=== PATIENT | male | born 1965 | race Caucasian/White ===

== ENCOUNTER 2018-09-13 12:06 | Inpatient (IN) | payer MEDICARE, MEDICAID ==
[~2018-09-13] VITALS: Ht 190.5 cm; Wt 149.7 kg
[2018-09-13] MEDS ORDERED: NS IV 1000 ML 1,000 ML IV SCH (12:09)
[2018-09-13] MEDS ORDERED: DOCUSATE SODIUM 100 MG (COLACE) CAP PO PRN (12:15)
[2018-09-13] MEDS ORDERED: ACETAMINOPHEN 500 MG TAB (TYLENOL) PO PRN (12:15)
[2018-09-13] MEDS ORDERED: fentaNYL INJECTION 100 MCG/2 ML AMP IVP PRN (12:15)
[2018-09-13] MEDS ORDERED: MELATONIN 3 MG TABLET PO PRN (12:15)
[2018-09-13] MEDS ORDERED: ONDANSETRON 4 MG/2 ML (SDV) Z0FRAN IVP PRN (12:15)
[2018-09-13] MEDS ORDERED: ALPRAZolam 0.25 MG (XANAX) TAB PO PRN (12:15)
[2018-09-13] MEDS ORDERED: VANCOMYCIN INJECTION 0.1 MG in NS (IVPB) 250 ML IV SCH (12:15)
[2018-09-13] MEDS ORDERED: diphenhydrAMINE 25 MG TAB (BENADRYL) PO PRN (12:15)
[2018-09-13] MEDS ORDERED: CALCIUM CARBONATE 500 MG (TUMS) TAB.CHEW PO PRN (12:15)
[2018-09-13 13:40] VITALS: BP 149/82
[2018-09-13 14:57] LABS: BASOPHILS % (AUTO) 0 % (0-10); EOSINOPHILS # (AUTO) 0.1 10^3/uL (0.0-0.3); EOSINOPHILS % (AUTO) 2 % (0-10); HEMATOCRIT 35 % (40-54); HEMOGLOBIN 11.4 G/DL (13.3-17.7); LYMPHOCYTES # (AUTO) 1.8 X 10^3 (1.0-4.0); LYMPHOCYTES % (AUTO) 31 % (12-44); MEAN CORPUSCULAR HEMOGLOBIN 29 PG (25-34); MEAN CORPUSCULAR HGB CONC 33 G/DL (32-36); MEAN CORPUSCULAR VOLUME 88 FL (80-99); MEAN PLATELET VOLUME 10.7 FL (7.4-10.4); MONOCYTES # (AUTO) 0.6 X 10^3 (0.0-1.0); MONOCYTES % (AUTO) 10 % (0-12); NEUTROPHILS # (AUTO) 3.2 X 10^3 (1.8-7.8); NEUTROPHILS % (AUTO) 56 % (42-75); PLATELET COUNT 134 10^3/uL (130-400); RED CELL DISTRIBUTION WIDTH 15.4 % (10.0-14.5); WHITE BLOOD COUNT 5.8 10^3/uL (4.3-11.0)
[2018-09-13] MEDS ORDERED: PIPERACILLIN/TAZO 4.5 GM/NS 100 ML IV NR ×2 (15:00)
[2018-09-13] MEDS ORDERED: INSU200I4 SC (15:06)
[2018-09-13] MEDS ORDERED: AMLO5TAB9 PO (15:06)
[2018-09-13] MEDS ORDERED: AMIT10TA6 PO (15:06)
[2018-09-13] MEDS ORDERED: IPRA4AER INH (15:06)
[2018-09-13] MEDS ORDERED: ALLO100T PO (15:06)
[2018-09-13] MEDS ORDERED: PREG150C PO (15:06)
[2018-09-13] MEDS ORDERED: METO100T12 PO (15:06)
[2018-09-13] MEDS ORDERED: NALO4SPR NS (15:06)
[2018-09-13] MEDS ORDERED: TOPI50TA13 PO (15:06)
[2018-09-13] MEDS ORDERED: DULO20CA18 PO (15:06)
[2018-09-13] MEDS ORDERED: SULF-222 PO (15:06)
[2018-09-13] MEDS ORDERED: SODI15OR5 PO (15:06)
[2018-09-13] MEDS ORDERED: LUBI24CA6 PO (15:06)
[2018-09-13] MEDS ORDERED: RANI300T4 PO (15:06)
[2018-09-13] MEDS ORDERED: RIZA10TA37 PO (15:06)
[2018-09-13] MEDS ORDERED: DOXA8TAB73 PO (15:06)
[2018-09-13] MEDS ORDERED: OXYC15TA79 PO (15:06)
[2018-09-13] MEDS ORDERED: ATOR20TA66 PO (15:06)
[2018-09-13 15:14] LABS: ALBUMIN 3.6 GM/DL (3.2-4.5); BILIRUBIN,TOTAL 0.3 MG/DL (0.1-1.0); CALCIUM 9.3 MG/DL (8.5-10.1); CREATININE SERUM 3.01 MG/DL (0.60-1.30); POTASSIUM 6.3 MMOL/L (3.6-5.0)
[2018-09-13 15:23] LABS: ERYTHROCYTE SEDIMENTATION RATE 65 MM/HR (0-30)
[2018-09-13] MEDS ORDERED: INSU100I14 SQ (15:26)
[2018-09-13] MEDS ORDERED: MAGN500C15 PO (15:26)
[2018-09-13] MEDS ORDERED: CHOL5000 PO (15:26)
[2018-09-13] MEDS ORDERED: IPRA3AMP31 NEB (15:26)
[2018-09-13] MEDS ORDERED: BUDE10.2 INH (15:26)
--- NOTE | 2018-09-13 15:27 | NUR ---
WENT OVER THE EXT MED HX WITH THE PATIENT AND HE VERIFIED HOW HE TAKES HIS MEDICATIONS. HE STATES HE TAKES VITAMIN D AND MAGNESIUM OTC. HE STATES HE ALSO HAS DUONEB NEBULIZER SOLUTION.
[2018-09-13] MEDS ORDERED: NON-FORMULARY MEDICATION 1 EA EA (Albuterol/Ipratropium (Combivent Respimat Inhal Spray) 1 INH PRN (15:45)
[2018-09-13] MEDS ORDERED: NON-FORMULARY MEDICATION 1 EA EA (Oxycodone HCl 15 MG) PO PRN (15:45)
[2018-09-13] MEDS ORDERED: NON-FORMULARY MEDICATION 1 EA EA (Rizatriptan Benzoate (Rizatriptan) 10 MG) PO PRN (15:45)
[2018-09-13 15:58] VITALS: BP 144/78
[2018-09-13] MEDS: NS IV 1000 ML 1,000 ML IV SCH (16:44)
--- NOTE | 2018-09-13 17:29 | Progress Note-Hospitalist ---
Progress Note This is a patient Dr Carmichael admitted to my service after seeing him in clinic for a non-healing left foot wound. 2 weeks of abx have not helped. Patient sees PCP in [place]. Patient was admitted and underwent osteo w/u and will be placed on empiric abx in prep for surgery by Dr Carmichael. SHRUTHI GROSS DO Sep 13, 2018 17:29
[2018-09-13] MEDS: VANCOMYCIN 2000 MG/NS 500 ML IVPB IV SCH ×2 (17:40)
[2018-09-13] MEDS: inSUlin ASPART (NovoLOG) 1 UNIT/0.01 ML (CHARGE PER UNIT) SC SCH ×2 (17:45→21:30)
[2018-09-13] MEDS: ENOXAPARIN 40 MG/0.4 ML (LOVENOX) SYR SC SCH (17:49)
[2018-09-13] MEDS ORDERED: NON-FORMULARY MEDICATION 1 EA EA (Insulin Degludec (Tresiba Flextouch U-200) 50 UNITS) SC SCH (18:00)
[2018-09-13] MEDS ORDERED: SUMAtriptan 50 MG (IMITREX) TAB PO PRN (18:15)
[2018-09-13 19:12] VITALS: BP 159/76
[2018-09-13] MEDS ORDERED: NON-FORMULARY MEDICATION 1 EA EA (Pregabalin (Lyrica) 150 MG) PO SCH (21:00)
[2018-09-13] MEDS ORDERED: NON-FORMULARY MEDICATION 1 EA EA (Metoprolol Tartrate 100 MG) PO SCH (21:00)
[2018-09-13] MEDS ORDERED: NON-FORMULARY MEDICATION 1 EA EA (Topiramate 50 MG) PO SCH (21:00)
[2018-09-13] MEDS ORDERED: ALLOPURINOL 150 MG PO SCH (21:00)
[2018-09-13] MEDS ORDERED: NON-FORMULARY MEDICATION 1 EA EA (Doxazosin Mesylate 8 MG) PO SCH (21:00)
[2018-09-13] MEDS ORDERED: NON-FORMULARY MEDICATION 1 EA EA (Magnesium Oxide (Magnesium) 500 MG) PO SCH (21:00)
[2018-09-13] MEDS ORDERED: NON-FORMULARY MEDICATION 1 EA EA (Budesonide/Formoterol Fumarate (Symbicort 160-4.5 Mcg In INH SCH (21:00)
[2018-09-13] MEDS ORDERED: NON-FORMULARY MEDICATION 1 EA EA (Cholecalciferol (Vitamin D3) (Vitamin D3) 5,000 UNIT) PO SCH (21:00)
[2018-09-13] MEDS ORDERED: NON-FORMULARY MEDICATION 1 EA EA (Ranitidine HCl 300 MG) PO SCH (21:00)
[2018-09-13] MEDS: NICOTINE 21 MG (NICODERM) PATCH TD SCH (21:27)
[2018-09-13] MEDS: FAMOTIDINE 20 MG (PEPCID) TABLET PO SCH (21:28)
[2018-09-13] MEDS: ALLOPURINOL 300 MG (ZYLOPRIM) TAB PO SCH (21:28)
[2018-09-13] MEDS: PREGABALIN 75 MG (LYRICA) CAP PO SCH (21:29)
[2018-09-13] MEDS: MAGNESIUM OXIDE (MAG-OX)400 MG TAB PO SCH (21:29)
[2018-09-13] MEDS: toPIRamate 25 MG (TOPAMAX) TAB PO SCH (21:29)
[2018-09-13] MEDS: SENNA W/DOCUSATE (SENOKOT S) TABLET PO SCH (21:30)
[2018-09-13] MEDS: AMITRIPTYLINE 10 MG (ELAVIL) TAB PO SCH (21:30)
[2018-09-13] MEDS: VITAMIN D3 5,000 UNITS (CHOLECALCIFEROL ) CAPSULE PO SCH (21:30)
[2018-09-13] MEDS: meTOprolol TARTRATE 50 MG (LOPRESSOR) TAB PO SCH (21:30)
[2018-09-13] MEDS: PIPERACILLIN/TAZOBACTAM (BULK) 4.5 GM in NS (IVPB) 100 ML IV SCH (21:31)
[2018-09-13] MEDS: doxAzosin 4 MG (CARDURA) TAB PO SCH (21:34)
[2018-09-13] MEDS: POLYETHYLENE GLYCOL 17 GM (MIRALAX) PACK PO SCH (21:36)
[2018-09-13 23:30] VITALS: BP 164/86
[2018-09-14] VITALS (11 sets, daily range): BP systolic 109–151; BP diastolic 63–83
[2018-09-14] MEDS: NS IV 1000 ML 1,000 ML IV SCH ×2 (05:55→11:56)
[2018-09-14 05:57] LABS: BASOPHILS % (AUTO) 0 % (0-10); EOSINOPHILS # (AUTO) 0.2 10^3/uL (0.0-0.3); EOSINOPHILS % (AUTO) 3 % (0-10); HEMATOCRIT 23 % (40-54); HEMOGLOBIN 7.5 G/DL (13.3-17.7); LYMPHOCYTES # (AUTO) 2.6 X 10^3 (1.0-4.0); LYMPHOCYTES % (AUTO) 38 % (12-44); MEAN CORPUSCULAR HEMOGLOBIN 29 PG (25-34); MEAN CORPUSCULAR HGB CONC 32 G/DL (32-36); MEAN CORPUSCULAR VOLUME 92 FL (80-99); MEAN PLATELET VOLUME 10.3 FL (7.4-10.4); MONOCYTES # (AUTO) 0.7 X 10^3 (0.0-1.0); MONOCYTES % (AUTO) 11 % (0-12); NEUTROPHILS # (AUTO) 3.2 X 10^3 (1.8-7.8); NEUTROPHILS % (AUTO) 48 % (42-75); PLATELET COUNT 102 10^3/uL (130-400); WHITE BLOOD COUNT 6.7 10^3/uL (4.3-11.0)
[2018-09-14] MEDS: PIPERACILLIN/TAZOBACTAM (BULK) 4.5 GM in NS (IVPB) 100 ML IV SCH ×3 (06:05→21:55)
[2018-09-14] MEDS: inSUlin ASPART (NovoLOG) 1 UNIT/0.01 ML (CHARGE PER UNIT) SC SCH ×4 (06:06→21:53)
[2018-09-14] MEDS: ENOXAPARIN 40 MG/0.4 ML (LOVENOX) SYR SC SCH ×2 (06:06→19:06)
[2018-09-14 06:20] LABS: ALBUMIN 3.3 GM/DL (3.2-4.5); BILIRUBIN,TOTAL 0.3 MG/DL (0.1-1.0); CALCIUM 8.9 MG/DL (8.5-10.1); CREATININE SERUM 2.92 MG/DL (0.60-1.30); POTASSIUM 5.8 MMOL/L (3.6-5.0); TOTAL PROTEIN 6.2 GM/DL (6.4-8.2)
[2018-09-14] MEDS ORDERED: NICOTINE 21 MG (NICODERM) PATCH TD SCH (09:00)
[2018-09-14] MEDS ORDERED: NON-FORMULARY MEDICATION 1 EA EA (Amlodipine Besylate 5 MG) PO SCH (09:00)
[2018-09-14] MEDS: NICOTINE PATCH REMOVAL TP SCH (09:19)
[2018-09-14] MEDS: PREGABALIN 75 MG (LYRICA) CAP PO SCH ×2 (09:19→21:52)
[2018-09-14] MEDS: VITAMIN D3 5,000 UNITS (CHOLECALCIFEROL ) CAPSULE PO SCH ×2 (09:19→21:52)
[2018-09-14] MEDS: MAGNESIUM OXIDE (MAG-OX)400 MG TAB PO SCH ×2 (09:20→21:53)
[2018-09-14] MEDS: ALLOPURINOL 300 MG (ZYLOPRIM) TAB PO SCH ×2 (09:20→21:52)
[2018-09-14] MEDS: meTOprolol TARTRATE 50 MG (LOPRESSOR) TAB PO SCH ×2 (09:20→21:52)
[2018-09-14] MEDS: amLODIPine 5 MG (NORVASC) TAB PO SCH (09:21)
[2018-09-14] MEDS: SENNA W/DOCUSATE (SENOKOT S) TABLET PO SCH ×2 (09:21→21:53)
[2018-09-14] MEDS: NICOTINE 21 MG (NICODERM) PATCH TD SCH (09:21)
[2018-09-14] MEDS: POLYETHYLENE GLYCOL 17 GM (MIRALAX) PACK PO SCH ×2 (09:21→21:53)
[2018-09-14] MEDS: ATORVASTATIN 20 MG (LIPITOR) TABLET PO SCH (09:22)
[2018-09-14 10:24] LABS: HEMOGLOBIN 11.3 G/DL (13.3-17.7)
--- NOTE | 2018-09-14 11:27 | History & Physical-Hospitalist ---
History of Present Illness HPI/Chief Complaint CC: Left foot wound HPI: This is a 52-year-old white male clinic patient of Dr. Dolores rose who previously had an uncomplicated left foot surgery for a sesamoid bone removal but had some issues with a delayed healing placed on antibiotics for 2 weeks but had no improvement. He was sent over as a direct admission for presumed osteomyelitis of the left foot. He reports that the left foot swelling has never resolved since his surgery and has a lot of pain at times but he is diabetic neuropathy helps minimize that type of pain. He does have renal insufficiency usual creatinine is around 2.5 he reports that he was on Bactrim so we will monitor creatinine closely. I did maintain him on IV fluids for flushing of his system. I reviewed his home medications and restarted most and he is using his home BiPAP machine. MRI and labs will be obtained while patient maintained on vancomycin and Zosyn. Source: patient Exam Limitations: no limitations Date Seen 09/14/18 Time Seen by a Provider: 10:00 Attending Physician Malinda Bernal DO PCP No,Local Physician Referring Physician Date of Admission Sep 13, 2018 at 13:58 Home Medications & Allergies Home Medications Reviewed patient Home Medication Reconciliation performed by pharmacy medication reconciliations bindery technician and/or nursing. Patients Allergies have been reviewed. Allergies Allergies Uncoded Allergies IV contrast ( Adverse Reaction, Mild, 09/13/18) pt states it hurts his kidneys Past Ascpcjz-Kiciam-Kpqitl Hx Past Med/Social Hx: Reviewed Nursing Past Med/Soc Hx, Reviewed and Corrections made Patient Social History Marrital Status: cohabiting Employed/Student: unemployed Alcohol Use: Denies Use Recreational Drug Use: No Smoking Status: Current Everyday Smoker Physical Abuse Screen: No Sexual Abuse: No Recent Foreign Travel: No Contact w/other who traveled: No Recent Hopitalizations: Yes (6 WEEKS AGO FOR ORTHO SURGERY ON FOOT) Recent Infectious Disease Expo: No Immunizations Up To Date Date of Pneumonia Vaccine: Feb 13, 2018 Seasonal Allergies Seasonal Allergies: No Past Medical History Surgeries: Orthopedic Respiratory: Sleep Apnea Currently Using CPAP: Yes Cardiac: High Cholesterol, Hypertension Neurological: Neuropathy Sexually Transmitted Disease: No HIV/AIDS: No Genitourinary: Renal Failure, Dialysis Gastrointestinal: Gastroesophageal Reflux Musculoskeletal: Arthritis, Gout Endocrine: Diabetes, Insulin dep Are Your Blood Sugars Over 250: No HEENT: Cataract Loss of Vision: Denies Hearing Impairment: Denies Family History Patient reports no known family medical history. Review of Systems Constitutional: see HPI EENTM: no symptoms reported Respiratory: no symptoms reported Cardiovascular: no symptoms reported Gastrointestinal: no symptoms reported Genitourinary: no symptoms reported Musculoskeletal: joint pain Skin: no symptoms reported Psychiatric/Neurological: No Symptoms Reported All Other Systems Reviewed Negative Unless Noted: Yes Physical Exam Physical Exam Vital Signs Vital Signs - First Documented 09/13/18 09/13/18 13:40 22:00 Temp 98.1 Pulse 82 Resp 20 B/P (MAP) 149/82 Pulse Ox 93 O2 Delivery Room Air O2 Flow Rate 4.00 Capillary Refill : Height, Weight, BMI Height: 6'3.00" Weight: 330lbs. 0.0oz. 149.864371qo; 41.3 BMI Method: General Appearance: No Apparent Distress, WD/WN, Chronically ill, Obese Eyes: Right Eye Normal Inspection, Right Eye PERRL HEENT: PERRL/EOMI, Normal ENT Inspection, Pharynx Normal, Moist Mucous Membranes Neck: Full Range of Motion, Normal Inspection, Non Tender Respiratory: Chest Non Tender, Lungs Clear, Normal Breath Sounds, No Accessory Muscle Use, No Respiratory Distress Cardiovascular: Regular Rate, Rhythm, No Edema, No Gallop, No JVD, No Murmur, Normal Peripheral Pulses Gastrointestinal: Normal Bowel Sounds, No Organomegaly, No Pulsatile Mass, Non Tender, Soft Back: Normal Inspection, No CVA Tenderness, No Vertebral Tenderness Extremity: Normal Capillary Refill, Normal Inspection, Normal Range of Motion, Non Tender, No Calf Tenderness, No Pedal Edema, Other (left foot edema and redness) Neurologic/Psychiatric: Alert, Oriented x3, No Motor/Sensory Deficits, Normal Mood/Affect, seconds grader II-XII Norm as Tested Skin: Normal Color, Warm/Dry Lymphatic: No Adenopathy Results Results/Procedures Labs Laboratory Tests 09/13/18 14:41 09/14/18 05:25 09/14/18 10:15 Patient resulted labs reviewed. Assessment/Plan Admission Diagnosis Assessment: Left foot osteomyelitis Deep abscess DM HTN HLP GAYE Smoker Plan: IV abx Supportive care Monitor creatinine Admission Status: Inpatient Order (span 2 midnights) Reason for Inpatient Admission: IV abx and osteomyelitis Diagnosis/Problems Diagnosis/Problems (1) Osteomyelitis of left foot Status: Acute Qualifiers: Osteomyelitis type: unspecified type Qualified Codes: M86.9 - Osteomyelitis, unspecified (2) Abscess of left foot Status: Acute (3) GAYE treated with BiPAP Status: Chronic (4) Hypertension Status: Chronic Qualifiers: Hypertension type: essential hypertension Qualified Codes: I10 - Essential (primary) hypertension (5) Renal failure (ARF), acute on chronic Status: Chronic Qualifiers: Acute renal failure type: unspecified Chronic kidney disease stage: stage 4 (severe) Qualified Codes: N17.9 - Acute kidney failure, unspecified; N18.4 - Chronic kidney disease, stage 4 (severe) (6) Obesity Status: Chronic Qualifiers: Obesity type: due to excess calories Obesity classification: adult class 3 (BMI >= 40) Serious obesity comorbidity presence: with serious comorbidity (7) Smoker Status: Chronic (8) Wound of left foot Status: Acute Clinical Quality Measures DVT/VTE Risk/Contraindication: Risk Factor Score Per Nursin RFS Level Per Nursing on Admit: 4+=Very High MALINDA BERNAL DO Sep 14, 2018 11:27
[2018-09-14] MEDS: DULoxetine 20 MG (CYMBALTA) CAP PO SCH (11:56)
--- NOTE | 2018-09-14 12:13 | Diagnostic Imaging Report ---
PROCEDURE: MR imaging left lower extremity without contrast. TECHNIQUE: Multiplanar, multisequence non contrast enhanced MR imaging of the left lower extremity was accomplished. INDICATION: Left foot edema and redness. EXAMINATION: MRI of the left lower extremity without contrast dated 09/14/2018. FINDINGS: There is diffuse abnormal signal intensity involving the mid and distal aspects of the first metatarsal. This also involves the proximal aspect of the proximal first phalanx. Fluid in the first metatarsal joint is noted. There is also fluid tracking from the first metatarsal head along its plantar aspect down towards the skin, perhaps a laceration. This collection measures 2.6 cm in depth, approximately 2.8 cm in proximal to distal dimension and 2.2 cm in transverse dimension. An abscess is not excluded given lack of contrast. Fluid lies immediately adjacent to the flexor tendon of the great toe. The tendon is slightly prominent perhaps due to a tenosynovitis. Multiple areas of susceptibility artifact within the fluid collection and surrounding soft tissues noted perhaps postoperative or due to prior procedure, foreign bodies not excluded. Areas of susceptibility artifact also seen overlying the volar aspect of the first metatarsal head. There appears to be likely prior surgery through the first metatarsal itself with possible screws in place. This is better characterized with radiographs. Edema involves portions of the more distal proximal first phalanx and portions of the distal first phalanx as well. Diffuse subcutaneous edema seen probably in the dorsum of the entire visualized foot and also throughout the medial subcutaneous soft tissues of the foot. Mild diffuse muscular edema is also seen throughout the foot perhaps due to a diffuse myositis. The more proximal osseous structures demonstrate multifocal areas of scattered mild edema within the phalanges of all remaining toes. Some of this may represent incomplete fat saturation. True edema felt to be much less likely. Correlate for any overlying lacerations. IMPRESSION: 1. Fluid collection noted along the plantar aspect of the great toe at the level of the first metatarsophalangeal joint. This tracks to the skin and could represent an ulcer, correlate with physical examination. An underlying abscess not excluded without contrast. This extends to the joint space as well and a septic joint at the first metatarsal phalangeal joint is certainly possible. Additionally, abnormal signal intensity in the first metatarsal and the proximal first phalanx and to a lesser degree the distal first phalanx could be reactive in nature with osteomyelitis however suspected. Again post contrast imaging could provide further characterization if clinically indicated. 2. Diffuse soft tissue signal changes and muscular edema, likely a combination of myositis, a deep subcutaneous edema and/or cellulitis. 3. Other findings as above. Dictated by: Dictated on workstation # [id number]
--- NOTE | 2018-09-14 14:12 | NUR ---
CALLED DR. LAI AT THIS TIME TO NOTIFY HIM THAT PATIENT'S MRI RESULTS ARE IN. THIS RN READ DR. LAI THE RADIOLOGIST INTERPRETATION REPORT. RADIOLOGY REPORT NOTES SUSPECT FOR OSTEOMYELITIS. STATES THAT HE WILL CALL SURGERY SCHEDULING AND SEE IF HE CAN TAKE PT TO SURGERY THIS EVENING OR TOMORROW AM. STATES TO KEEP PATIENT NPO UNTIL HE CALLS THIS RN BACK TO UPDATE ON PLAN.
--- NOTE | 2018-09-14 14:20 | NUR ---
DR. LAI CALLS THIS RN BACK TO UPDATE ON PLAN FOR PATIENT. DR. LAI STATES PATIENT CAN GO AHEAD AND EAT AND BE NPO AT MIDNIGHT FOR SURGERY TOMORROW AM. STATES TO GET CONSENT FOR INCISION AND DRAINAGE OF LEFT METATARSOPHALANGEAL JOINT. WILL UPDATE PATIENT AND CONTINUE TO MONITOR.
[2018-09-14] MEDS ORDERED: PATIENT MAY USE OWN MED,SINGLE MED PO SCH (14:45)
[2018-09-14] MEDS ORDERED: MIDAZOLAM 2 MG/2 ML (VERSED) VIAL ONE (15:30)
[2018-09-14] MEDS ORDERED: fentaNYL INJECTION 100 MCG/2 ML AMP ONE (15:30)
[2018-09-14] MEDS: VANCOMYCIN 2000 MG/NS 500 ML IVPB IV SCH ×2 (16:42)
[2018-09-14] MEDS: LUBIPROSTONE 24 MCG PO SCH ×3 (16:42→21:54)
[2018-09-14] MEDS ORDERED: D5 LR IV SOLUTION 1,000 ML IV ONE (19:21)
--- NOTE | 2018-09-14 19:48 | Consultation ---
History of Present Illness History of Present Illness Patient Consulted On(elizabeth/time) 09/14/18 19:42 Date Seen by Provider: Sep 14, 2018 Time Seen by Provider: 19:40 Reason for Visit: Abscess Left Foot History of Present Illness Pt has an abscess to the left foot. He is 6wks S/P Excision of the tibial sesamoid to the left foot. He developed a wound dehiscence to the foot post o peratively after he took his own stitches out and then soaked the open wound in apple cider vinegar. He was doing well on oral antibiotics and his surgical wound was completely healed until his follow up appointment on 09/12/18 where he was noted to have cellulitis and concern of abscess formation. He was direct admitted to the hospital and had an MRI today + for abscess and possible acute osteomyelitis. Allergies and Home Medications Allergies Uncoded Allergies: IV contrast (Adverse Reaction, Mild, 09/13/18) pt states it hurts his kidneys Home Medications Albuterol/Ipratropium 4 Gm Aero, 1 PUFF INH QID PRN for SHORTNESS OF BREATH, (Reported) Allopurinol 100 Mg Tablet, 150 MG PO BID, (Reported) TAKES 1 & 1/2 (100MG) TABLET Amitriptyline HCl 10 Mg Tablet, 10 MG PO HS, (Reported) Amlodipine Besylate 5 Mg Tablet, 5 MG PO DAILY, (Reported) Atorvastatin Calcium 20 Mg Tablet, 20 MG PO DAILY, (Reported) Budesonide/Formoterol Fumarate 10.2 Gm Hfa.aer.ad, 2 PUFF INH BID, (Reported) LAST FILLED 3 INHALERS FEBRUARY 2018 Cholecalciferol (Vitamin D3) 5,000 Unit Capsule, 5,000 UNIT PO BID, (Reported) Doxazosin Mesylate 8 Mg Tablet, 8 MG PO HS, (Reported) Duloxetine HCl 20 Mg Capsule.dr, 20 MG PO DAILY, (Reported) Insulin Aspart 300 Units/3 Ml Solution, SQ UD PRN for BLOOD SUGAR, (Reported) USES 10 UNITS WITH MEALS PLUS CORRECTION FACTOR Insulin Degludec 200 Unit/1 Ml Insuln.pen, 50 UNITS SC 1800, (Reported) Ipratropium/Albuterol Sulfate 3 Ml Ampul.neb, 3 ML NEB Q4H PRN for SHORTNESS OF BREATH, (Reported) Lubiprostone 24 Mcg Capsule, 24 MCG PO BID, (Reported) Magnesium Oxide 500 Mg Capsule, 500 MG PO BID, (Reported) Metoprolol Tartrate 100 Mg Tablet, 100 MG PO BID, (Reported) Naloxone HCl 4 Mg [place], NS UD PRN for OVERDOSE, (Reported) CALL 911. ADMINISTER A SINGLE DOSE OF NARCAN IN ONE NOSTRIL. REPEAT EVERY 3 MINUTES NEEDED IF NO OR MINIMAL RESPONSE. Oxycodone HCl 15 Mg Tablet, 15 MG PO Q6H PRN for PAIN-SEVERE, (Reported) Pregabalin 150 Mg Capsule, 150 MG PO BID, (Reported) Ranitidine HCl 300 Mg Tablet, 300 MG PO BID, (Reported) Rizatriptan Benzoate 10 Mg Tablet, 10 MG PO UD PRN for MIGRAINE, (Reported) Sodium Polystyrene Sulfonate 15 Gm/60 Ml Oral.susp, 120 ML PO Tu, (Reported) Sulfamethoxazole/Trimethoprim 1 Each Tablet, 2 TAB PO BID, (Reported) 10 DAY SUPPLY FILLED 09-07-18 Topiramate 50 Mg Tablet, 50 MG PO HS, (Reported) Patient Home Medication List Home Medication List Reviewed: Yes Past Jychsnm-Hpdtkt-Klnwbc Hx Patient Social History Alcohol Use: Denies Use Recreational Drug Use: No Smoking Status: Current Everyday Smoker Recent Foreign Travel: No Contact w/Someone Who Travel: No Recent Infectious Disease Expo: No Recent Hopitalizations: Yes (6 WEEKS AGO FOR ORTHO SURGERY ON FOOT) Immunizations Up To Date Date of Pneumonia Vaccine: Feb 13, 2018 Seasonal Allergies Seasonal Allergies: No Past Medical History Surgeries: Yes Respiratory: Yes Asthma, Sleep Apnea, COPD Currently Using CPAP: Yes Cardiac: No Neurological: Yes Sexually Transmitted Disease: No HIV/AIDS: No Genitourinary: No (DIALYSIS IN 2008 NOT ON DIALYSIS NOW) Renal Failure, Dialysis Gastrointestinal: Yes (WEIGHT LOSS SURGERY THIS LAST NOVEMEBER PYLORIC STENOSIS SURG. ) Gastroesophageal Reflux Musculoskeletal: Yes (RECENT LEFT FOOT SURGERY) Arthritis, Gout Endocrine: Yes Are Your Blood Sugars Over 250: No HEENT: Yes (CATARACT REMOVAL 3 YEARS AGO) Cataract Loss of Vision: Denies Hearing Impairment: Denies Cancer: No Integumentary: No Family Medical History Patient reports no known family medical history. Review of Systems-General Constitutional: No no symptoms reported, No see HPI, No chills, No diaphoresis, No dizziness, No fever, No malaise, No weakness, No weight gain, No weight loss, No other Respiratory: No no symptoms reported, No see HPI, No cough, No dyspnea on exertion, No hemoptysis, No orthopnea, No phlegm, No short of breath, No stridor, No wheezing, No other Physical Exam-General Problems Physical Exam Vital Signs Vital Signs - First Documented 09/13/18 09/13/18 13:40 22:00 Temp 98.1 Pulse 82 Resp 20 B/P (MAP) 149/82 Pulse Ox 93 O2 Delivery Room Air O2 Flow Rate 4.00 Capillary Refill : Extremities: other (LLE- Pedal pulses palpable, gross sensation intact, no open wounds at this time, +erythema at the 1st MTPJ, mild fluctuance to the plantar aspect of the joint) Assessment/Plan Assessment/Plan Admission Diagnosis/Plan Abscess Left 1st MTPJ Acute Osteomyelitis left foot IDDM -Emergent I&D Left 1st MTPJ -NWB LLE -PICC line and superintendent container terminal IV abx pending surgical cultures -Cont DVT Proph Reason for Inpatient Admission: Abscess Left Foot Clinical Quality Measures DVT/VTE Risk/Contraindication: Risk Factor Score Per Nursin RFS Level Per Nursing on Admit: 4+=Very High ZHANNA LAI DPM Sep 14, 2018 19:48
[2018-09-14] MEDS ORDERED: VANCOMYCIN 1000 MG/VIAL ONE (20:03)
[2018-09-14] MEDS ORDERED: GENTAMICIN 40 MG/ML 2 ML INJ SDV ONE (20:03)
[2018-09-14] MEDS ORDERED: morphine INJ 10 MG/ML 1ML (SYR OR VIAL) ONE (20:03)
[2018-09-14] MEDS ORDERED: LIDOCAINE PF 2% 5 ML (XYLOCAINE) VIAL ONE (20:08)
[2018-09-14] MEDS ORDERED: SEVOFLURANE (ULTANE) 15 ML INHAL SOLN ONE (20:08)
[2018-09-14] MEDS ORDERED: ONDANSETRON 4 MG/2 ML (SDV) Z0FRAN ONE (20:08)
[2018-09-14] MEDS ORDERED: proPOfol 200 MG/20 ML (DIPRIVAN) VIAL IV ONE (20:08)
--- NOTE | 2018-09-14 21:35 | NUR ---
PT RETURNED TO FLOOR.
[2018-09-14] MEDS: toPIRamate 25 MG (TOPAMAX) TAB PO SCH (21:52)
[2018-09-14] MEDS: FAMOTIDINE 20 MG (PEPCID) TABLET PO SCH (21:53)
[2018-09-14] MEDS: doxAzosin 4 MG (CARDURA) TAB PO SCH (21:53)
[2018-09-14] MEDS: AMITRIPTYLINE 10 MG (ELAVIL) TAB PO SCH (21:53)
[2018-09-14] MEDS: HYDROcodone/APAP 5 MG/325 MG (LORTAB) TAB PO PRN (23:30)
[2018-09-15] MEDS: NS IV 1000 ML 1,000 ML IV SCH ×4 (00:37→20:45)
[2018-09-15] MEDS: HYDROcodone/APAP 5 MG/325 MG (LORTAB) TAB PO PRN (03:57)
[2018-09-15 04:00] VITALS: BP 133/72
[2018-09-15 05:57] LABS: BASOPHILS % (AUTO) 0 % (0-10); EOSINOPHILS # (AUTO) 0.1 10^3/uL (0.0-0.3); EOSINOPHILS % (AUTO) 2 % (0-10); HEMATOCRIT 34 % (40-54); HEMOGLOBIN 10.7 G/DL (13.3-17.7); LYMPHOCYTES # (AUTO) 1.7 X 10^3 (1.0-4.0); LYMPHOCYTES % (AUTO) 31 % (12-44); MEAN CORPUSCULAR HEMOGLOBIN 29 PG (25-34); MEAN CORPUSCULAR HGB CONC 32 G/DL (32-36); MEAN CORPUSCULAR VOLUME 91 FL (80-99); MEAN PLATELET VOLUME 10.9 FL (7.4-10.4); MONOCYTES # (AUTO) 0.4 X 10^3 (0.0-1.0); MONOCYTES % (AUTO) 8 % (0-12); NEUTROPHILS # (AUTO) 3.2 X 10^3 (1.8-7.8); NEUTROPHILS % (AUTO) 59 % (42-75); PLATELET COUNT 130 10^3/uL (130-400); RED CELL DISTRIBUTION WIDTH 15.5 % (10.0-14.5); WHITE BLOOD COUNT 5.5 10^3/uL (4.3-11.0)
[2018-09-15 06:17] LABS: ALBUMIN 3.4 GM/DL (3.2-4.5); BILIRUBIN,TOTAL 0.2 MG/DL (0.1-1.0); CALCIUM 9.1 MG/DL (8.5-10.1); CREATININE SERUM 3.16 MG/DL (0.60-1.30); TOTAL PROTEIN 6.6 GM/DL (6.4-8.2)
[2018-09-15] MEDS: ENOXAPARIN 40 MG/0.4 ML (LOVENOX) SYR SC SCH ×2 (06:23→17:49)
[2018-09-15] MEDS: inSUlin ASPART (NovoLOG) 1 UNIT/0.01 ML (CHARGE PER UNIT) SC SCH ×4 (06:23→20:36)
[2018-09-15] MEDS: PIPERACILLIN/TAZOBACTAM (BULK) 4.5 GM in NS (IVPB) 100 ML IV SCH ×3 (06:24→22:16)
[2018-09-15 08:24] VITALS: BP 138/72
[2018-09-15] MEDS: ALLOPURINOL 300 MG (ZYLOPRIM) TAB PO SCH ×2 (09:18→20:37)
[2018-09-15] MEDS: PREGABALIN 75 MG (LYRICA) CAP PO SCH ×2 (09:19→20:36)
[2018-09-15] MEDS: meTOprolol TARTRATE 50 MG (LOPRESSOR) TAB PO SCH ×2 (09:20→20:36)
[2018-09-15] MEDS: ATORVASTATIN 20 MG (LIPITOR) TABLET PO SCH (09:20)
[2018-09-15] MEDS: DULoxetine 20 MG (CYMBALTA) CAP PO SCH (09:20)
[2018-09-15] MEDS: VITAMIN D3 5,000 UNITS (CHOLECALCIFEROL ) CAPSULE PO SCH ×2 (09:20→20:36)
[2018-09-15] MEDS: amLODIPine 5 MG (NORVASC) TAB PO SCH (09:20)
[2018-09-15] MEDS: NICOTINE PATCH REMOVAL TP SCH (09:21)
[2018-09-15] MEDS: NICOTINE 21 MG (NICODERM) PATCH TD SCH (09:21)
[2018-09-15] MEDS: POLYETHYLENE GLYCOL 17 GM (MIRALAX) PACK PO SCH ×2 (09:22→19:32)
[2018-09-15] MEDS: LUBIPROSTONE 24 MCG PO SCH ×2 (09:22→20:41)
[2018-09-15] MEDS: SENNA W/DOCUSATE (SENOKOT S) TABLET PO SCH ×2 (09:22→19:32)
[2018-09-15] MEDS: MAGNESIUM OXIDE (MAG-OX)400 MG TAB PO SCH ×2 (09:28→20:37)
--- NOTE | 2018-09-15 10:36 | Anesthesia-General Post-Op ---
General Patient Condition Mental Status/LOC: Same as Preop Cardiovascular: Satisfactory Nausea/Vomiting: Absent Respiratory: Satisfactory Pain: Controlled Complications: Absent Post Op Complications Complications None Follow Up Care/Instructions Patient Instructions None needed. Anesthesia/Patient Condition Patient Condition Patient is doing well, no complaints, stable vital signs, no apparent adverse anesthesia problems. No complications reported per nursing. FIDEL FARIA CRNA Sep 15, 2018 10:36
--- NOTE | 2018-09-15 12:12 | Progress Note-Hospitalist ---
Subjective HPI/CC On Admission Date Seen by Provider: Sep 15, 2018 Time Seen by Provider: 11:30 CC: Left foot wound HPI: This is a 52-year-old white male clinic patient of Dr. Dolores rose who previously had an uncomplicated left foot surgery for a sesamoid bone removal but had some issues with a delayed healing placed on antibiotics for 2 weeks but had no improvement. He was sent over as a direct admission for presumed os teomyelitis of the left foot. He reports that the left foot swelling has never resolved since his surgery and has a lot of pain at times but he is diabetic neuropathy helps minimize that type of pain. He does have renal insufficiency usual creatinine is around 2.5 he reports that he was on Bactrim so we will monitor creatinine closely. I did maintain him on IV fluids for flushing of his system. I reviewed his home medications and restarted most and he is using his home BiPAP machine. MRI and labs will be obtained while patient maintained on vancomycin and Zosyn. Subjective/Events-last exam Patient doing well since incision and drainage of abscess of the left foot ye sterday Maintained on broad-spectrum antibiotics Pain is controlled Bowels are moving due to antibiotics he reports Wants to go smoke Maintain on gentle IV fluids Reviewed meds and labs Creatinine continues to be around 3.0 set that is his baseline and he does take Kayexalate for the hyperkalemia Review of Systems General: Fatigue Musculoskeletal: foot pain Objective Exam Vital Signs Vital Signs Date Time Temp Pulse Resp B/P (MAP) Pulse Ox O2 Delivery O2 Flow Rate FiO2 09/15/18 12:52 97.8 71 20 128/77 (94) 94 Room Air 0.00 Capillary Refill : Less Than 3 Seconds General Appearance: No Apparent Distress, WD/WN, Chronically ill, Obese HEENT: PERRL/EOMI, Normal ENT Inspection, Pharynx Normal, Moist Mucous Membranes Neck: Full Range of Motion, Normal Inspection, Non Tender Respiratory: Chest Non Tender, Lungs Clear, Normal Breath Sounds, No Accessory Muscle Use, No Respiratory Distress Cardiovascular: Regular Rate, Rhythm, No Edema, No Gallop, No JVD, No Murmur, Normal Peripheral Pulses Gastrointestinal: Normal Bowel Sounds, No Organomegaly, No Pulsatile Mass, Non Tender, Soft Back: Normal Inspection, No CVA Tenderness, No Vertebral Tenderness Extremity: Normal Capillary Refill, Normal Inspection, Normal Range of Motion, Non Tender, No Calf Tenderness, No Pedal Edema, Other (left foot edema and redness) Neurologic/Psychiatric: Alert, Oriented x3, No Motor/Sensory Deficits, Normal Mood/Affect, poker supervisor II-XII Norm as Tested Skin: Normal Color, Warm/Dry Lymphatic: No Adenopathy Results/Procedures Lab Laboratory Tests 09/15/18 05:16 Patient resulted labs reviewed. Assessment/Plan Assessment and Plan Assess & Plan/Chief Complaint Assessment: Left foot osteomyelitis with abscess status post incision and drainage POD # 1 DM HTN HLP GAYE Smoker Plan: IV abx Supportive care Monitor creatinine Await wound culture Diagnosis/Problems Diagnosis/Problems (1) Osteomyelitis of left foot Status: Acute Qualifiers: Osteomyelitis type: unspecified type Qualified Codes: M86.9 - Osteomyelitis, unspecified (2) Abscess of left foot Status: Resolved Resolution Date/Time: 09/15/18 @ 13:06 (3) GAYE treated with BiPAP Status: Chronic (4) Hypertension Status: Chronic Qualifiers: Hypertension type: essential hypertension Qualified Codes: I10 - Essential (primary) hypertension (5) Renal failure (ARF), acute on chronic Status: Chronic Qualifiers: Acute renal failure type: unspecified Chronic kidney disease stage: stage 4 (severe) Qualified Codes: N17.9 - Acute kidney failure, unspecified; N18.4 - Chronic kidney disease, stage 4 (severe) (6) Obesity Status: Chronic Qualifiers: Obesity type: due to excess calories Obesity classification: adult class 3 (BMI >= 40) Serious obesity comorbidity presence: with serious comorbidity (7) Smoker Status: Chronic (8) Wound of left foot Status: Acute Clinical Quality Measures DVT/VTE Risk/Contraindication: Risk Factor Score Per Nursin RFS Level Per Nursing on Admit: 4+=Very High SHRUTHI GROSS DO Sep 15, 2018 12:12
[2018-09-15 12:52] VITALS: BP 128/77
--- NOTE | 2018-09-15 14:20 | Podiatry Progress Note ---
Standard Progress Note Progress Notes/Assess & Plan Date Seen by a Provider: Sep 15, 2018 Time Seen by a Provider: 14:16 Progress/Assessment & Plan Pt seen at [facility]. He denies F/C/N/V. Pain controlled. LLE- dressing changed today, mild sanguinous drainage noted, no purulence, no fluctuance, erythema has continued improvement, mild swelling, Calves supple nontender POD #1 I&D Left Foot abscess with placement of antibiotic beads -cont empiric IV abx -Await final surgical cultures -PICC line for senior living IV Abx -NWB LLE -Cont DVT Prophylaxis. ZHANNA LAI DPM Sep 15, 2018 14:20
--- NOTE | 2018-09-15 14:20 | NUR ---
DR LAI ON FLOOR AND HE DID DSG CHANGE --
[2018-09-15] MEDS ORDERED: TROUGH ORDER-PHARMACY XX NR (15:30)
[2018-09-15 15:49] VITALS: BP 152/80
[2018-09-15] MEDS: VANCOMYCIN 2000 MG/NS 500 ML IVPB IV SCH ×2 (16:28)
[2018-09-15 20:00] VITALS: BP 167/84
[2018-09-15] MEDS: AMITRIPTYLINE 10 MG (ELAVIL) TAB PO SCH (20:36)
[2018-09-15] MEDS: FAMOTIDINE 20 MG (PEPCID) TABLET PO SCH (20:37)
[2018-09-15] MEDS: toPIRamate 25 MG (TOPAMAX) TAB PO SCH (20:37)
[2018-09-15] MEDS: doxAzosin 4 MG (CARDURA) TAB PO SCH (20:37)
[2018-09-15] MEDS: RT-ADVAIR HFA 115/21 MCG PER PUFF IH SCH ×2 (21:58→21:59)
[2018-09-16 00:10] VITALS: BP 141/75
[2018-09-16] MEDS: PIPERACILLIN/TAZOBACTAM (BULK) 4.5 GM in NS (IVPB) 100 ML IV SCH ×3 (05:15→22:17)
[2018-09-16] MEDS: RT-ALBUTEROL/IPRATROPIUM 3 ML (DUONEB) VIAL IH PRN ×2 (05:34→16:14)
[2018-09-16] MEDS: inSUlin ASPART (NovoLOG) 1 UNIT/0.01 ML (CHARGE PER UNIT) SC SCH ×4 (05:45→21:57)
[2018-09-16] MEDS: ENOXAPARIN 40 MG/0.4 ML (LOVENOX) SYR SC SCH ×2 (05:49→18:10)
[2018-09-16] MEDS: RT-ADVAIR HFA 115/21 MCG PER PUFF IH SCH ×2 (06:15→19:26)
[2018-09-16 06:50] LABS: BASOPHILS % (AUTO) 0 % (0-10); EOSINOPHILS # (AUTO) 0.1 10^3/uL (0.0-0.3); EOSINOPHILS % (AUTO) 2 % (0-10); HEMATOCRIT 34 % (40-54); HEMOGLOBIN 10.9 G/DL (13.3-17.7); LYMPHOCYTES % (AUTO) 47 % (12-44); MEAN CORPUSCULAR HEMOGLOBIN 29 PG (25-34); MEAN CORPUSCULAR HGB CONC 32 G/DL (32-36); MEAN CORPUSCULAR VOLUME 90 FL (80-99); MONOCYTES # (AUTO) 0.4 X 10^3 (0.0-1.0); MONOCYTES % (AUTO) 10 % (0-12); NEUTROPHILS # (AUTO) 1.7 X 10^3 (1.8-7.8); NEUTROPHILS % (AUTO) 41 % (42-75); PLATELET COUNT 114 10^3/uL (130-400); RED CELL DISTRIBUTION WIDTH 15.2 % (10.0-14.5); WHITE BLOOD COUNT 4.1 10^3/uL (4.3-11.0)
[2018-09-16 07:12] LABS: ALBUMIN 3.5 GM/DL (3.2-4.5); BILIRUBIN,TOTAL 0.4 MG/DL (0.1-1.0); CALCIUM 9.1 MG/DL (8.5-10.1); CREATININE SERUM 2.75 MG/DL (0.60-1.30); POTASSIUM 5.8 MMOL/L (3.6-5.0); TOTAL PROTEIN 6.6 GM/DL (6.4-8.2)
[2018-09-16 08:13] VITALS: BP 153/73
[2018-09-16] MEDS: PREGABALIN 75 MG (LYRICA) CAP PO SCH ×2 (09:54→20:47)
[2018-09-16] MEDS: VITAMIN D3 5,000 UNITS (CHOLECALCIFEROL ) CAPSULE PO SCH ×2 (09:54→20:46)
[2018-09-16] MEDS: MAGNESIUM OXIDE (MAG-OX)400 MG TAB PO SCH ×2 (09:54→20:46)
[2018-09-16] MEDS: amLODIPine 5 MG (NORVASC) TAB PO SCH (09:54)
[2018-09-16] MEDS: meTOprolol TARTRATE 50 MG (LOPRESSOR) TAB PO SCH ×2 (09:54→20:46)
[2018-09-16] MEDS: DULoxetine 20 MG (CYMBALTA) CAP PO SCH (09:55)
[2018-09-16] MEDS: SENNA W/DOCUSATE (SENOKOT S) TABLET PO SCH ×2 (09:55→20:50)
[2018-09-16] MEDS: NICOTINE 21 MG (NICODERM) PATCH TD SCH (09:55)
[2018-09-16] MEDS: ALLOPURINOL 300 MG (ZYLOPRIM) TAB PO SCH ×2 (09:55→20:46)
[2018-09-16] MEDS: ATORVASTATIN 20 MG (LIPITOR) TABLET PO SCH (09:56)
[2018-09-16] MEDS: LUBIPROSTONE 24 MCG PO SCH ×2 (09:56→20:47)
[2018-09-16] MEDS: NICOTINE PATCH REMOVAL TP SCH (09:56)
[2018-09-16] MEDS: POLYETHYLENE GLYCOL 17 GM (MIRALAX) PACK PO SCH ×2 (09:56→20:50)
--- NOTE | 2018-09-16 10:44 | Progress Note-Hospitalist ---
Subjective HPI/CC On Admission Date Seen by Provider: Sep 16, 2018 Time Seen by Provider: 10:00 CC: Left foot wound HPI: This is a 52-year-old white male clinic patient of Dr. Dolores rose who previously had an uncomplicated left foot surgery for a sesamoid bone removal but had some issues with a delayed healing placed on antibiotics for 2 weeks but had no improvement. He was sent over as a direct admission for presumed os teomyelitis of the left foot. He reports that the left foot swelling has never resolved since his surgery and has a lot of pain at times but he is diabetic neuropathy helps minimize that type of pain. He does have renal insufficiency usual creatinine is around 2.5 he reports that he was on Bactrim so we will monitor creatinine closely. I did maintain him on IV fluids for flushing of his system. I reviewed his home medications and restarted most and he is using his home BiPAP machine. MRI and labs will be obtained while patient maintained on vancomycin and Zosyn. Subjective/Events-last exam Patient doing well overall Bowels are moving We will Hep-Lock IV fluid PICC line will be placed tomorrow for 6 weeks of antibiotics We [facility] Wants to go home soon hopefully tomorrow Creatinine 2.75 Pain is well controlled Review of Systems Musculoskeletal: foot pain Objective Exam Vital Signs Vital Signs Date Time Temp Pulse Resp B/P (MAP) Pulse Ox O2 Delivery O2 Flow Rate FiO2 09/16/18 16:14 87 Room Air 09/16/18 16:09 99.2 77 20 163/79 (107) 09/16/18 08:13 0.00 Capillary Refill : Less Than 3 Seconds General Appearance: No Apparent Distress, WD/WN, Chronically ill, Obese HEENT: PERRL/EOMI, Normal ENT Inspection, Pharynx Normal, Moist Mucous Membranes Neck: Full Range of Motion, Normal Inspection, Non Tender Respiratory: Chest Non Tender, Lungs Clear, Normal Breath Sounds, No Accessory Muscle Use, No Respiratory Distress Cardiovascular: Regular Rate, Rhythm, No Edema, No Gallop, No JVD, No Murmur, Normal Peripheral Pulses Gastrointestinal: Normal Bowel Sounds, No Organomegaly, No Pulsatile Mass, Non Tender, Soft Back: Normal Inspection, No CVA Tenderness, No Vertebral Tenderness Extremity: Normal Capillary Refill, Normal Inspection, Normal Range of Motion, Non Tender, No Calf Tenderness, No Pedal Edema, Other (left foot edema and redness) Neurologic/Psychiatric: Alert, Oriented x3, No Motor/Sensory Deficits, Normal 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 Assessment/Plan Assessment and Plan Assess & Plan/Chief Complaint Assessment: Left foot osteomyelitis with abscess status post incision and drainage POD # 2 DM HTN HLP GAYE Smoker CRF Stage 4 Plan: IV abx Supportive care Monitor creatinine Await wound culture final results PICC line placement Diagnosis/Problems Diagnosis/Problems (1) Osteomyelitis of left foot Status: Acute Qualifiers: Osteomyelitis type: unspecified type Qualified Codes: M86.9 - Osteo myelitis, unspecified (2) Abscess of left foot Status: Resolved Resolution Date/Time: 09/15/18 @ 13:06 (3) GAYE treated with BiPAP Status: Chronic (4) Hypertension Status: Chronic Qualifiers: Hypertension type: essential hypertension Qualified Codes: I10 - Essential (primary) hypertension (5) Renal failure (ARF), acute on chronic Status: Chronic Qualifiers: Acute renal failure type: unspecified Chronic kidney disease stage: stage 4 (severe) Qualified Codes: N17.9 - Acute kidney failure, unspecified; N18.4 - Chronic kidney disease, stage 4 (severe) (6) Obesity Status: Chronic Qualifiers: Obesity type: due to excess calories Obesity classification: adult class 3 (BMI >= 40) Serious obesity comorbidity presence: with serious comorbidity (7) Smoker Status: Chronic (8) Wound of left foot Status: Acute Clinical Quality Measures DVT/VTE Risk/Contraindication: Risk Factor Score Per Nursin RFS Level Per Nursing on Admit: 4+=Very High SHRUTHI GROSS DO Sep 16, 2018 10:44
[2018-09-16] MEDS: HYDROcodone/APAP 5 MG/325 MG (LORTAB) TAB PO PRN (15:58)
[2018-09-16] MEDS: VANCOMYCIN 2000 MG/NS 500 ML IVPB IV SCH ×2 (16:00)
[2018-09-16 16:09] VITALS: BP 163/79
[2018-09-16] MEDS ORDERED: OXYC-465 PO (17:50)
--- NOTE | 2018-09-16 20:30 | NUR ---
PT IV LEAKING, REFUSING ANOTHER PERIPHERAL STICK, PT SCHEDULED TO HAVE PICC LINE TOMORROW, ANTIBIOTICS NOT ADMINISTERED DUE TO NO ACCESS. DR. GROSS NOTIFIED.
[2018-09-16] MEDS: toPIRamate 25 MG (TOPAMAX) TAB PO SCH (20:46)
[2018-09-16] MEDS: doxAzosin 4 MG (CARDURA) TAB PO SCH (20:46)
[2018-09-16] MEDS: FAMOTIDINE 20 MG (PEPCID) TABLET PO SCH (20:46)
[2018-09-16] MEDS: AMITRIPTYLINE 10 MG (ELAVIL) TAB PO SCH (20:47)
--- NOTE | 2018-09-16 22:01 | Podiatry Progress Note ---
Standard Progress Note Progress Notes/Assess & Plan Date Seen by a Provider: Sep 16, 2018 Time Seen by a Provider: 05:33 Progress/Assessment & Plan Pt seen at [facility]. He denies F/C/N/V. Pain controlled. LLE- dressing changed today, no drainage noted, no purulence, no fluctuance, erythema has continued improvement, mild swelling, Calves supple nontender Tissue Culture- gram negative bacilli POD #2 I&D Left Foot abscess with placement of antibiotic beads -Pt okay for D/C once Home IV Abx arranged. Follow up in 2 weeks. -cont empiric IV abx -Await final surgical cultures -PICC line for long term care phlebotomist IV Abx -NWB LLE -Cont DVT Prophylaxis. ZHANNA LAI DPM Sep 16, 2018 22:01
[2018-09-16 23:54] VITALS: BP 151/78
[2018-09-17] MEDS: inSUlin ASPART (NovoLOG) 1 UNIT/0.01 ML (CHARGE PER UNIT) SC SCH ×2 (05:21→12:22)
[2018-09-17] MEDS: ENOXAPARIN 40 MG/0.4 ML (LOVENOX) SYR SC SCH (05:51)
[2018-09-17] MEDS: PIPERACILLIN/TAZOBACTAM (BULK) 4.5 GM in NS (IVPB) 100 ML IV SCH (06:13)
[2018-09-17 06:25] LABS: BASOPHILS % (AUTO) 0 % (0-10); EOSINOPHILS # (AUTO) 0.1 10^3/uL (0.0-0.3); EOSINOPHILS % (AUTO) 3 % (0-10); HEMATOCRIT 31 % (40-54); HEMOGLOBIN 10.3 G/DL (13.3-17.7); LYMPHOCYTES # (AUTO) 1.7 X 10^3 (1.0-4.0); LYMPHOCYTES % (AUTO) 46 % (12-44); MEAN CORPUSCULAR HEMOGLOBIN 29 PG (25-34); MEAN CORPUSCULAR HGB CONC 33 G/DL (32-36); MEAN CORPUSCULAR VOLUME 89 FL (80-99); MEAN PLATELET VOLUME 10.2 FL (7.4-10.4); MONOCYTES # (AUTO) 0.4 X 10^3 (0.0-1.0); MONOCYTES % (AUTO) 10 % (0-12); NEUTROPHILS # (AUTO) 1.5 X 10^3 (1.8-7.8); NEUTROPHILS % (AUTO) 41 % (42-75); PLATELET COUNT 114 10^3/uL (130-400); RED CELL DISTRIBUTION WIDTH 15.2 % (10.0-14.5); WHITE BLOOD COUNT 3.6 10^3/uL (4.3-11.0)
[2018-09-17] MEDS: RT-ADVAIR HFA 115/21 MCG PER PUFF IH SCH (06:35)
[2018-09-17] MEDS: RT-ALBUTEROL/IPRATROPIUM 3 ML (DUONEB) VIAL IH PRN (06:38)
[2018-09-17 06:41] LABS: ALBUMIN 3.3 GM/DL (3.2-4.5); BILIRUBIN,TOTAL 0.3 MG/DL (0.1-1.0); CALCIUM 9.5 MG/DL (8.5-10.1); CREATININE SERUM 2.49 MG/DL (0.60-1.30); POTASSIUM 5.4 MMOL/L (3.6-5.0); TOTAL PROTEIN 6.3 GM/DL (6.4-8.2)
[2018-09-17 08:00] VITALS: BP 182/84
--- NOTE | 2018-09-17 08:31 | NUR ---
PRIOR TO A.M. MEDICATIONS PULSE WAS 87 B/P WAS 182/84.
[2018-09-17] MEDS: NICOTINE PATCH REMOVAL TP SCH (08:50)
[2018-09-17] MEDS: LUBIPROSTONE 24 MCG PO SCH (08:51)
[2018-09-17] MEDS: PREGABALIN 75 MG (LYRICA) CAP PO SCH (08:51)
[2018-09-17] MEDS: ALLOPURINOL 300 MG (ZYLOPRIM) TAB PO SCH (08:51)
[2018-09-17] MEDS: ATORVASTATIN 20 MG (LIPITOR) TABLET PO SCH (08:51)
[2018-09-17] MEDS: meTOprolol TARTRATE 50 MG (LOPRESSOR) TAB PO SCH (08:51)
[2018-09-17] MEDS: VITAMIN D3 5,000 UNITS (CHOLECALCIFEROL ) CAPSULE PO SCH (08:51)
[2018-09-17] MEDS: MAGNESIUM OXIDE (MAG-OX)400 MG TAB PO SCH (08:51)
[2018-09-17] MEDS: DULoxetine 20 MG (CYMBALTA) CAP PO SCH (08:51)
[2018-09-17] MEDS: amLODIPine 5 MG (NORVASC) TAB PO SCH (08:52)
[2018-09-17] MEDS: POLYETHYLENE GLYCOL 17 GM (MIRALAX) PACK PO SCH (08:52)
[2018-09-17] MEDS: NICOTINE 21 MG (NICODERM) PATCH TD SCH (08:52)
[2018-09-17] MEDS: SENNA W/DOCUSATE (SENOKOT S) TABLET PO SCH (08:52)
[2018-09-17] MEDS ORDERED: APIX2.5T PO (09:39)
[2018-09-17] MEDS ORDERED: CEFT2PIG2 IV (09:39)
[2018-09-17] MEDS ORDERED: CEFT2FRO2 IV (09:42)
[2018-09-17] MEDS ORDERED: cefTRIAXone FOR IV USE 2,000 MG in WATER (STERILE) FOR INJECTION 20 ML IV NR (09:45)
--- NOTE | 2018-09-17 09:45 | Discharge Summary-Hospitalist ---
Diagnosis/Chief Complaint Date of Admission Sep 13, 2018 at 13:58 Date of Discharge Discharge Date: Sep 17, 2018 Admission Diagnosis Assessment: Left foot osteomyelitis Deep abscess DM HTN HLP GAYE Smoker Plan: IV abx Supportive care Monitor creatinine Discharge Diagnosis (1) Osteomyelitis of left foot Status: Acute (2) Abscess of left foot Status: Resolved (3) GAYE treated with BiPAP Status: Chronic (4) Hypertension Status: Chronic (5) Renal failure (ARF), acute on chronic Status: Chronic (6) Obesity Status: Chronic (7) Smoker Status: Chronic (8) Wound of left foot Status: Acute Discharge Summary Discharge Physical Exam Allergies: Uncoded Allergies: IV contrast (Adverse Reaction, Mild, 09/13/18) pt states it hurts his kidneys Vitals & I&Os Vital Signs Date Time Temp Pulse Resp B/P (MAP) Pulse Ox O2 Delivery O2 Flow Rate FiO2 09/17/18 08:00 98.6 87 20 182/84 (116) 95 Room Air 09/17/18 08:00 0.00 General Appearance: No Apparent Distress, WD/WN, Chronically ill, Obese Respiratory: Chest Non Tender, Lungs Clear, Normal Breath Sounds, No Accessory Muscle Use, No Respiratory Distress Cardiovascular: Regular Rate, Rhythm, No Edema, No Gallop, No JVD, No Murmur, Normal Peripheral Pulses Neurologic/Psychiatric: Alert, Oriented x3, No Motor/Sensory Deficits, Normal Mood/Affect Hospital Course Was the Problem List Reviewed?: Yes Hospital course: Patient had a standard hospital course. No decompensation occurred. Patient was placed on empiric antibiotics. Podiatry performed incision and drainage. Culture revealed Serratia so PICC line was placed and patient was discharged on Rocephin 2 g IV for 42 doses. MRI consistent with osteomyelitis. Labs (last 24 hrs) Laboratory Tests 09/16/18 11:05: Glucometer 238H 09/16/18 15:53: Glucometer 167H 09/16/18 20:53: Glucometer 272H 09/17/18 05:14: Glucometer 93 09/17/18 05:51: White Blood Count 3.6L, Red Blood Count 3.54L, Hemoglobin 10.3L, Hematocrit 31L, Mean Corpuscular Volume 89, Mean Corpuscular Hemoglobin 29, Mean Corpuscular Hemoglobin Concent 33, Red Cell Distribution Width 15.2H, Platelet Count 114L, M yara Platelet Volume 10.2, Neutrophils (%) (Auto) 41L, Lymphocytes (%) (Auto) 46H , Monocytes (%) (Auto) 10, Eosinophils (%) (Auto) 3, Basophils (%) (Auto) 0, Neutrophils # (Auto) 1.5L, Lymphocytes # (Auto) 1.7, Monocytes # (Auto) 0.4, Eosinophils # (Auto) 0.1, Basophils # (Auto) 0.0 09/17/18 05:55: Sodium Level 140, Potassium Level 5.4H, Chloride Level 110H, Carbon Dioxide Level 23, Anion Gap 7, Blood Urea Nitrogen 28H, Creatinine 2.49H, Estimat Glomerular Filtration Rate 28, BUN/Creatinine Ratio 11, Glucose Level 91, Calcium Level 9.5, Corrected Calcium 10.1, Total Bilirubin 0.3, Aspartate Amino Transf (AST/SGOT) 18, Alanine Aminotransferase (ALT/SGPT) 32, Alkaline Phosphatase 76, Total Protein 6.3L, Albumin 3.3 Microbiology 09/13/18 Blood Culture - Preliminary, Resulted No growth 09/14/18 Gram Stain - Final, Resulted 09/14/18 Surgical Culture - Preliminary, Resulted Mixed Bacterial Nicol 09/14/18 MRSA Screen - Final, Complete MRSA not isolated 09/14/18 Gram Stain - Final, Resulted 09/14/18 Anaerobic Culture, Resulted Pending 09/14/18 Surgical Culture - Preliminary, Resulted Serratia marcescens Staphylococcus epidermidis Patient resulted labs reviewed. Pending Labs Laboratory Tests 09/17/18 05:14: Glucometer 93 09/17/18 05:51: White Blood Count 3.6, Red Blood Count 3.54, Hemoglobin 10.3, Hematocrit 31, Mean Corpuscular Volume 89, Mean Corpuscular Hemoglobin 29, Mean Corpuscular Hemoglobin Concent 33, Red Cell Distribution Width 15.2, Platelet Count 114, Mean Platelet Volume 10.2, Neutrophils (%) (Auto) 41, Lymphocytes (%) (Auto) 46, Monocytes (%) (Auto) 10, Eosinophils (%) (Auto) 3, Basophils (%) (Auto) 0, Neutrophils # (Auto) 1.5, Lymphocytes # (Auto) 1.7, Monocytes # (Auto) 0.4, Eosinophils # (Auto) 0.1, Basophils # (Auto) 0.0 09/17/18 05:55: Sodium Level 140, Potassium Level 5.4, Chloride Level 110, Carbon Dioxide Level 23, Anion Gap 7, Blood Urea Nitrogen 28, Creatinine 2.49, Estimat Glomerular Filtration Rate 28, BUN/Creatinine Ratio 11, Glucose Level 91, Calcium Level 9.5, Corrected Calcium 10.1, Total Bilirubin 0.3, Aspartate Amino Transf (AST/SGOT) 18, Alanine Aminotransferase (ALT/SGPT) 32, Alkaline Phosphatase 76, Total Protein 6.3, Albumin 3.3 Discussion & Recommendations Discharge Planning: <30 minutes discharge planning Discharge Home Medications: Active Scripts Active Ceftriaxone 2 gm Piggyback (Ceftriaxone Na/Dextrose,Iso) 2 Gm/50 Ml Froz.piggy 2 Gm IV DAILY Eliquis (Apixaban) 2.5 Mg Tablet 2.5 Mg PO BID Oxycodone-Acetaminophen 10-325 (Oxycodone HCl/Acetaminophen) 1 Each Tablet 1 Each PO Q8H PRN MDD 3 7 Days Reported Symbicort 160-4.5 Mcg Inhaler (Budesonide/Formoterol Fumarate) 10.2 Gm Hfa.aer.ad 2 Puff INH BID LAST FILLED 3 INHALERS FEBRUARY 2018 Novolog Flexpen (Insulin Aspart) 300 Units/3 Ml Solution SQ UD PRN USES 10 UNITS WITH MEALS PLUS CORRECTION FACTOR Iprat-Albut 0.5-3(2.5) mg/3 ml (Ipratropium/Albuterol Sulfate) 3 Ml Ampul.neb 3 Ml NEB Q4H PRN Vitamin D3 (Cholecalciferol (Vitamin D3)) 5,000 Unit Capsule 5,000 Unit PO BID Magnesium (Magnesium Oxide) 500 Mg Capsule 500 Mg PO BID Amlodipine Besylate 5 Mg Tablet 5 Mg PO DAILY Combivent Respimat Inhal [place] (Albuterol/Ipratropium) 4 Gm Aero 1 Puff INH QID PRN Rizatriptan (Rizatriptan Benzoate) 10 Mg Tablet 10 Mg PO UD PRN Tresiba Flextouch U-200 (Insulin Degludec) 200 Unit/1 Ml Insuln.pen 50 Units SC 1800 Topiramate 50 Mg Tablet 50 Mg PO HS Ranitidine HCl 300 Mg Tablet 300 Mg PO BID Atorvastatin Calcium 20 Mg Tablet 20 Mg PO DAILY Doxazosin Mesylate 8 Mg Tablet 8 Mg PO HS Metoprolol Tartrate 100 Mg Tablet 100 Mg PO BID Narcan (Naloxone HCl) 4 Mg [place] NS UD PRN CALL 911. ADMINISTER A SINGLE DOSE OF NARCAN IN ONE NOSTRIL. REPEAT EVERY 3 MINUTES NEEDED IF NO OR MINIMAL RESPONSE. Duloxetine HCl 20 Mg Capsule.dr 20 Mg PO DAILY Amitiza (Lubiprostone) 24 Mcg Capsule 24 Mcg PO BID Oxycodone HCl 15 Mg Tablet 15 Mg PO Q6H PRN Sps (Sodium Polystyrene Sulfonate) 15 Gm/60 Ml Oral.susp 120 Ml PO TU Lyrica (Pregabalin) 150 Mg Capsule 150 Mg PO BID Allopurinol 100 Mg Tablet 150 Mg PO BID TAKES 1 & 1/2 (100MG) TABLET Sulfamethoxazole-Tmp Ds Tablet (Sulfamethoxazole/Trimethoprim) 1 Each Tablet 2 Tab PO BID 10 Days 10 DAY SUPPLY FILLED 09-07-18 Amitriptyline HCl 10 Mg Tablet 10 Mg PO HS Instructions to patient/family Please see electronic discharge instructions given to patient. Clinical Quality Measures DVT/VTE Risk/Contraindication: Risk Factor Score Per Nursin RFS Level Per Nursing on Admit: 4+=Very High Problem Qualifiers (1) Osteomyelitis of left foot: Osteomyelitis type: unspecified type Qualified Codes: M86.9 - Osteomyelitis, unspecified (2) Hypertension: Hypertension type: essential hypertension Qualified Codes: I10 - Essential (primary) hypertension (3) Renal failure (ARF), acute on chronic: Acute renal failure type: unspecified Chronic kidney disease stage: stage 4 (severe) Qualified Codes: N17.9 - Acute kidney failure, unspecified; N18.4 - Chronic kidney disease, stage 4 (severe) (4) Obesity: Obesity type: due to excess calories Obesity classification: adult class 3 (BMI >= 40) Serious obesity comorbidity presence: with serious comorbidity SHRUTHI GROSS DO Sep 17, 2018 09:45
--- NOTE | 2018-09-17 11:25 | NUR ---
Important Message from Medicare presented, reviewed, signed and placed in patient chart. Patient voiced no intention to appeal and deny any needs or further questions at this time.
--- NOTE | 2018-09-17 11:32 | NUR ---
PICC LINE NURSE WITH PATIENT AT THIS TIME, THIS RN WILL CONT TO MONITOR THIS PATIENT AFTER PLACEMENT
--- NOTE | 2018-09-17 12:23 | Diagnostic Imaging Report ---
INDICATION: PICC line placement. COMPARISON: None available. TECHNIQUE: 2 frontal radiographs of the chest dated 09/17/2018. FINDINGS: Right-sided PICC line is in place with the distal tip seen within the upper chest midline. The cardiac silhouette is within normal limits in size. No significant pulmonary vascular congestion. No focal pulmonary opacity. No pleural effusion. No pneumothorax. No acute osseous abnormality. IMPRESSION: Right-sided PICC line is in place with the distal tip within the midline upper chest, likely extending across into the innominate vein. Alternately, this could be arterial in nature. Recommend repositioning. No significant pleural effusion or pneumothorax. Dictated by: Dictated on workstation # [id number]
--- NOTE | 2018-09-17 13:55 | Diagnostic Imaging Report ---
Indication: PICC line placement. Frontal chest obtained at 01:02 p.m. and compared to same day at 11:30 a.m. PICC line is seen over the right superior chest. It appears to be looped in the subclavian vein. There is central vascular congestion which is unchanged compared to the prior study. There is no pneumothorax or pleural fluid. IMPRESSION: Right-sided PICC line appears to be looped over the right subclavian vein. Suggest repositioning and reimaging. Dictated by: Dictated on workstation # [id number]
--- NOTE | 2018-09-17 14:50 | Diagnostic Imaging Report ---
INDICATION: PICC line placement. COMPARISON: Imaging from the same date. TECHNIQUE: Two radiographs of the chest dated September 17, 2018, at 1435 hours. FINDINGS: Right-sided PICC line is again identified. The distal tip is difficult to visualize, though it is no longer coiled over the right upper chest. The distal tip likely terminates within the superior aspect of the vena cava, though is not well seen. No pneumothorax. The remainder of the examination appears stable. No large pleural effusion or pneumothorax. IMPRESSION: Interval repositioning of right-sided PICC line. Though the distal tip is not optimally seen, positioning appears improved with the distal tip likely extending into the superior vena cava. No pneumothorax. Dictated by: Dictated on workstation # [id number]
[2018-09-17] MEDS ORDERED: cefTRIAXone 2 GM IV (ROCEPHIN) VIAL ONE (14:53)
[2018-09-17] MEDS ORDERED: WATER (STERILE) FOR INJECTION 20 ML ONE (14:53)
--- NOTE | 2018-09-17 16:16 | NUR ---
CM/SS, respond to consult for outpatient Rx for 6 weeks. Patient resides in [place] and has asked that his infusion be set up at [facility]. This was completed with the exception of some followup requests and MUST be completed before they will provide service to patient: Rx requires STOP DATE, "thru October 28", number of doses alone not acceptable. Need an order for PICC dressing changes. Requests for Dr. Carmichael orders were he did not identify where the wound was requiring dressing or how long this was to continue. Discussed with Dr. Carmichael/[place] and instructed them to fax this information directly to [facility] team. Warehouse Person waited 4+ hours today for orders to be faxed from their office which were then forwarded to [facility]. Removed self from process so that physician can communicate directly with care team in [place]. Gretchen Mckeon/[facility] made it clear the patient is scheduled for noon tomorrow but that they will not provide service unless all these specifics have been provided. It was learned that patient has a supplement to his Medicare of [place]. [employer] Registration explored and provided policy number which was forwarded to [facility] as well. Resume discharge planning in a.m.
[2018-09-18] MEDS ORDERED: SOD POLYSTERENE 15 GM/60 ML (KAYEXALATE) UNIT DOSE PO SCH (09:00)
[2018-09-18] MEDS ORDERED: CEFT2FRO2 IV (09:17)
--- NOTE | 2018-09-18 12:59 | NUR ---
CM/GIOVANNI. All requests met this a.m., confirmed with [facility] information was received and they would begin patient services today at noon per schedule.
--- NOTE | 2018-09-21 12:51 | Physician Query Clarification ---
PQ-Link Infection to Dev/Proc Admission/Discharge Admission Date: Sep 13, 2018 at 13:58 Discharge Date: Sep 17, 2018 at 15:15 The medical record reflects the following clinical scenario: History/Risk Factors: 6 weeks post excision of tibial sesamoid bone left foot. History of wound dehiscence. Patient reports that the left foot swelling has never resolved since his surgery. Clinical Findings: Osteomyelitis-left foot Treatment: IV Vancomycin and Zosyn. Question: Can you specify if current abscess and osteomyelitis is due to/associated with previous procedure]? Please document a response in Progress Note or Discharge Summary. 1. Yes - [infection] is due to/associated with [device or procedure]. 2. No - [infection] is not due to/associated with [device or procedure]. 3. Other, with explanation of the clinical findings. 4. Clinically undetermined, no explanation for the clinical findings. PHYSICIAN RESPONSE Specify if infection: 2 Explanation of clincal finding History of chronic wound to the foot. Please remember a lack of response to the above will prompt a phone page by [facility]/Coding staff. In responding to this query, please exercise your independent professional ju dgment. The purpose of this communication is to more accurately reflect the complexity of your patients condition. The fact that a question is asked does not imply that any particular answer is desired or expected. Thank you for your timely response to this clarification. Requestors name: Sadie Walker [facility] Phone # ext [phone] or [phone] THIS PHYSICIAN QUERY FORM IS A PERMANENT PART OF THE MEDICAL RECORD SADIE WALKER Sep 21, 2018 12:51 ZHANNA LAI DPM Sep 27, 2018 09:40
--- NOTE | 2018-09-27 15:48 | OPERATIVE REPORT ---
DATE OF SERVICE: 09/14/2018 SURGEON: Carlos Lai DPM IRRIGATING PUMP OPERATOR: None. PREOPERATIVE DIAGNOSES: 1. Abscess, left foot. 2. Osteomyelitis, left foot. 3. Retained hardware, left foot. POSTOPERATIVE DIAGNOSES: 1. Abscess, left foot. 2. Osteomyelitis, left foot. 3. Retained hardware, left foot. PROCEDURE PERFORMED: 1. I and D of left foot abscess. 2. Removal of hardware, left foot. 3. Placement of antibiotic bone void filler, left foot. ANESTHESIA: General anesthesia. HEMOSTASIS: Pneumatic calf tourniquet at 250 mmHg. ESTIMATED BLOOD LOSS: Minimal. MATERIALS USED: 2-0 and 3-0 nylon and a Stimulan antibiotic impregnated calcium sulfate beads. INTRAOPERATIVE INJECTABLES: None. COMPLICATIONS: None. INDICATIONS FOR THE PROCEDURE: The patient is a 52-year-old male with a history of an infection, abscess to his left foot. He also has concern for possible osteomyelitis that was acute. The patient has developed an abscess to his left foot and is at this time requiring urgent I and D of the abscess. He was made aware of the risks and benefits of the procedure as well as alternatives to undergoing it and signed consent prior to being taken back to the OR. DESCRIPTION OF PROCEDURE: Under mild sedation, the patient was brought into the OR and placed on the operating table in supine position. Following administration of general anesthesia, a pneumatic calf tourniquet was placed to the left lower extremity. The left lower extremity was scrubbed, prepped and draped in aseptic manner. Proper timeout was performed. The left lower extremity was identified as the surgical site. Next, an approximately 3 cm incision was made to the plantar aspect of the foot in the area of the prior surgical incision for the excision of tibial sesamoid. The incision was then bluntly and sharply dissected down to the area where there was noted to be an abscess; it was tracked with a hemostat and the tracking went down to the first metatarsophalangeal joint. There was approximately 5 mL of seropurulent drainage that was expressed from the wound and cultured as well as tissue cultures were also sent for microbiological specimen. Multiple cultures were sent for microbiology to determine the causation of the infection. The wound was then flushed with copious amounts of sterile saline and any necrotic tissue was resected and passed from the surgical field. Next, an approximately 3 cm incision was made to the medial aspect of the first metatarsophalangeal joint where it was noted that he had a capsular tendon balancing done with an Arthrex internal brace. There was concern for possible infected hardware within the medial aspect of the joint. This incision was deepened down to the level of the internal brace. The internal brace was then released from the base of the proximal phalanx as well as the head of the first metatarsal and passed from the surgical field. There was noted to be some necrotic tissue around the area of the tendon consistent with infection of the implant. The bio-absorbable screws were, however, not able to be retrieved into the bone due to the depth within the bone and that they had already begun integrating into the bone that would cause significant damage to the bone to resect these bio-absorbable screws. Next, all wounds were again flushed with copious amounts of sterile saline. The plantar foot incision where there was an area of the abscess was packed with a Stimulan antibiotic impregnated calcium sulfate beads and the skin to both incisions was then closed using 2-0 and 3-0 nylon. The foot was then dressed with a dry sterile dressing consisting of 4 x 4's, cast padding and Moncho wrap. The patient tolerated the procedure and anesthesia well. He was transferred from the OR to recovery with vital signs stable and neurovascular status intact to the left lower extremity. Job ID: [id number] DocumentID: [id number] Dictated Date: 09/27/2018 09:58:26 Transformer Assembly Supervisor Date: 09/27/2018 15:48:35 Dictated By: CARLOS LAI DPM
--- NOTE | 2018-10-03 08:47 | Physician Query Clarification ---
PQ-Further Specificity Admission/Discharge Admission Date: Sep 13, 2018 at 13:58 Discharge Date: Sep 17, 2018 at 15:15 The medical record reflects the following clinical scenario: History/Risk Factors: Previous insertion of implant(internal brace) left foot. 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 Clinical Findings: Abscess left foot From op report dictation: There was noted to be some necrotic tissue around the area of the tendon consistent with infection of the implant. Treatment: I and D of abscess, removal of hardware and placement of antibiotic bone void filler, left foot. Question: Can you further specify Principal diagnosis, after study per the clinical indicators above? Please document a response in the Progress Notes or Discharge Summary. 1. Diabetes type 2 with acute osteomyelitis left foot. 2. Infection/inflammatory reaction due to other internal orthopaedic prosthetic device(implant). 3. Other, with explanation of the clinical findings. 4. Clinically undetermined, no explanation for the clinical findings. Please remember a lack of response to the above will prompt a phone page by [facility] staff. In responding to this query, please exercise your independent professional judgment. The purpose of this communication is to more accurately reflect the complexity of your patients condition. The fact that a question is asked does not imply that any particular answer is desired or expected. Thank you for your timely response to this clarification. Requestors name: [ ] Phone # [ ] THIS PHYSICIAN QUERY FORM IS A PERMANENT PART OF THE MEDICAL RECORD JESICA WALKER Oct 03, 2018 08:46 LANG MCKAY Oct 08, 2018 10:50
== END 2018-09-17 15:15 | disposition home or self-care (01) | DRG 988 ==
LOC: OBSVTOIN 13:58 → UNDOADMOB 13:58 → 4TH 13:58 → INTOOBSV 13:58 → 4TH 13:58 → EDSTATUS 16:33 → UNDODISIN 09-17 15:15
PROVIDERS: ADMIT Internal Medicine; ATTEND Internal Medicine
PROC: 0QPR04Z Removal of Internal Fixation Device from Left Toe Phalanx, Open Approach (ICD-10-PCS; 2018-09-14)
PROC: 3E0U029 Introduction of Other Anti-infective into Joints, Open Approach (ICD-10-PCS; 2018-09-14)
PROC: 0SBN0ZX Excision of Left Metatarsal-Phalangeal Joint, Open Approach, Diagnostic (ICD-10-PCS; 2018-09-14)
PROC: 0QPP04Z Removal of Internal Fixation Device from Left Metatarsal, Open Approach (ICD-10-PCS; principal; 2018-09-14 19:42)
DX: E11.69 Type 2 diabetes mellitus with other specified complication (principal); M86.172 Other acute osteomyelitis, left ankle and foot; L02.612 Cutaneous abscess of left foot; T84.7XXA Infection and inflammatory reaction due to other internal orthopedic prosthetic devices, implants and grafts, initial encounter; E66.9 Obesity, unspecified; Z68.41 Body mass index [BMI] 40.0-44.9, adult; E11.40 Type 2 diabetes mellitus with diabetic neuropathy, unspecified; I12.9 Hypertensive chronic kidney disease with stage 1 through stage 4 chronic kidney disease, or unspecified chronic kidney disease; N18.4 Chronic kidney disease, stage 4 (severe); N17.9 Acute kidney failure, unspecified; G47.33 Obstructive sleep apnea (adult) (pediatric); E78.00 Pure hypercholesterolemia, unspecified; K21.9 Gastro-esophageal reflux disease without esophagitis; M19.91 Primary osteoarthritis, unspecified site; J44.9 Chronic obstructive pulmonary disease, unspecified; F17.200 Nicotine dependence, unspecified, uncomplicated; M10.9 Gout, unspecified; E87.5 Hyperkalemia
CPT/HCPCS: 36415; 36569; 71045; 76937; 80053; 80202; 82962; 85014; 85018; 85025; 85652; 86141; 87040; 87070; 87075; 87077; 87081; 87186; 87205; 94640; 94760